=== PATIENT | female | born 1935 | race Two or more races ===

== ENCOUNTER 2020-09-25 12:08 | Outpatient (CLI) | payer OTHER | END 2020-09-25 12:21 | disposition home or self-care (01) | LOC: RAD 12:08 | PROVIDERS: ATTEND Physical Medicine & Rehabilitation | DX: M25.552 Pain in left hip (principal); M25.551 Pain in right hip; M70.71 Other bursitis of hip, right hip; M70.72 Other bursitis of hip, left hip; M75.31 Calcific tendinitis of right shoulder; M75.32 Calcific tendinitis of left shoulder ==